=== PATIENT | female | born 1955 | race Caucasian/White ===

== ENCOUNTER 2021-04-25 18:58 | Inpatient (IN) | payer MEDICARE, MEDICAID ==
[~2021-04-25] VITALS: Ht 162.6 cm; Wt 61.2 kg
[2021-04-25 20:32] LABS: BASOPHILS % 0.6 % (0.0-2.0); EOSINOPHILS % 0.5 % (0.0-5.0); HEMATOCRIT. 39.8 % (36.0-48.0); HEMOGLOBIN. 12.9 g/dL (12.0-16.0); LYMPHOCYTES % 28.8 % (20.0-50.0); MEAN CORPUSCULAR HEMOGLOBIN 27.4 pg (28.0-32.0); MEAN CORPUSCULAR VOLUME 84.8 fL (81.0-99.0); MEAN PLATELET VOLUME 9.3 fl (7.4-10.4); MONOCYTES % 6.8 % (2.0-8.0); NEUTROPHILS % 63.3 % (40.0-76.0); PLATELET 205 x1000/uL (130-400); RED BLOOD CELL COUNT 4.69 mill/uL (4.2-5.4); RED CELL DISTRIBUTION WIDTH 14.6 % (11.6-14.6)
[2021-04-25 20:41] LABS: CHLORIDE 109 mEq/L (98-107)
[2021-04-25] MEDS ORDERED: CEFTRIAXONE 1 G PREMIX 50 ML IV NR (23:00)
[2021-04-25] MEDS ORDERED: AZITHROMYCIN 500MG/250ML 500 ML IV NR (23:00)
[2021-04-25] MEDS ORDERED: AZITHROMYCIN 500MG/250ML 250 ML IV NR (23:00)
[2021-04-25] MEDS ORDERED: IOHEXOL-300 100 ML BOTTLE ONE (23:15)
[2021-04-25] MEDS ORDERED: ONDANSETRON HCL 4MG/2ML INJ IV PRN (23:15)
[2021-04-26 01:05] LABS: CLARITY URINE CLEAR (CLEAR); COLOR URINE YELLOW (YELLOW); KETONES URINE NEGATIVE (NEGATIVE); LEUKOCYTE ESTERASE URINE 1+ (NEGATIVE); NITRITE URINE NEGATIVE (NEGATIVE); OCCULT BLOOD URINE NEGATIVE (NEGATIVE); PH URINE 5.5 (4.5-8.0); PROTEIN URINE 3+ (NEGATIVE); SPECIFIC GRAVITY URINE 1.035 (1.005-1.030)
[2021-04-26 05:25] LABS: BASOPHILS % 0.4 % (0.0-2.0); EOSINOPHILS % 0.3 % (0.0-5.0); HEMATOCRIT. 42.1 % (36.0-48.0); HEMOGLOBIN. 13.5 g/dL (12.0-16.0); LYMPHOCYTES % 19.1 % (20.0-50.0); MEAN CORPUSCULAR HEMOGLOBIN 27.2 pg (28.0-32.0); MEAN CORPUSCULAR VOLUME 85.3 fL (81.0-99.0); MEAN PLATELET VOLUME 9.2 fl (7.4-10.4); MONOCYTES % 5.4 % (2.0-8.0); NEUTROPHILS % 74.8 % (40.0-76.0); PLATELET 217 x1000/uL (130-400); RED BLOOD CELL COUNT 4.94 mill/uL (4.2-5.4); RED CELL DISTRIBUTION WIDTH 14.4 % (11.6-14.6)
[2021-04-26 05:26] LABS: CHLORIDE 110 mEq/L (98-107)
[2021-04-26 05:33] LABS: LDL CHOLESTEROL 62 mg/dL (5-100)
[2021-04-26 05:34] LABS: CREATINE KINASE 79 IU/L (26-192); HDL CHOLESTEROL 33 mg/dL (40-59)
[2021-04-26 05:37] LABS: CREATINE KINASE MB FRACTION 1.9 ng/mL (0.5-3.6)
[2021-04-26] MEDS ORDERED: FUROSEMIDE 20MG/2ML VIAL IVP SCH (09:00)
[2021-04-26 09:48] LABS: T4 FREE 1.2 ng/dL (0.76-1.46)
[2021-04-26 12:00] VITALS: BP 108/77
[2021-04-26] MEDS ORDERED: LACTULOSE 20G/30ML UDC PO NR (13:00)
[2021-04-26 13:28] LABS: BG BASE EXCESS -3.7 mmol/L (-2.0-2.0); BG CARBOXYHEMOGLOBIN 0.6 % (0.5-1.5); BG DEOXYHEMOGLOBIN 3.2 % (0.0-5.0); BG HCO3 ACT 19.9 mmol/L (22.0-26.0); BG METHEMOGLOBIN 0.3 % (0.0-1.5); BG OXYGEN SATURATION 96.8 % (92.0-98.5); BG OXYHEMOGLOBIN 95.9 % (94.0-97.0); BG PCO2 31.8 mmHg (35.0-45.0); BG PH 7.415 (7.350-7.450); BG PO2 90.2 mmHg (75.0-100.0); BG SAMPLE SITE LEFT RADIAL; BG TOTAL HEMOGLOBIN 12.9 g/dL (12.0-18.0); BG VENT MODE ROOM AIR
[2021-04-26 13:40] VITALS: BP 108/77
[2021-04-26 16:00] VITALS: BP 116/83
[2021-04-26 20:00] VITALS: BP 106/75
[2021-04-27] VITALS: BP 116/87
[2021-04-27 04:00] VITALS: BP 120/87
[2021-04-27 06:51] LABS: CREATINE KINASE MB FRACTION 1.4 ng/mL (0.5-3.6)
[2021-04-27 08:00] VITALS: BP 121/95
[2021-04-27] MEDS: ACETAMINOPHEN 650MG/20.3ML UDC PO PRN ×2 (11:50→20:02)
[2021-04-27 12:00] VITALS: BP 121/94
[2021-04-27 16:00] VITALS: BP 116/92
[2021-04-27 17:46] LABS: INR 1.2; PROTHROMBIN TIME 12.4 sec (9.6-11.0)
[2021-04-27 20:00] VITALS: BP 118/89
[2021-04-28] VITALS: BP 126/97
[2021-04-28 04:00] VITALS: BP 128/97
[2021-04-28 06:00] VITALS: BP 128/96
[2021-04-28 08:00] VITALS: BP 132/83
[2021-04-28] MEDS ORDERED: SODIUM BICARBONATE 4% (2.4MEQ) 5ML VIAL IV ONE (08:00)
[2021-04-28] MEDS ORDERED: LIDOCAINE HCL 1% 10 MG/ML 10ML VIAL ONE (08:52)
[2021-04-28] MEDS ORDERED: ACETAMINOPHEN 650MG/20.3ML UDC PO NR (09:30)
[2021-04-28] MEDS ORDERED: NALOXONE HCL 0.4MG/ML VIAL IV PRN (09:30)
[2021-04-28] MEDS ORDERED: HYDROCODONE/ACETAMINOPHEN 5/325MG TABLET PO PRN (09:30)
[2021-04-28 11:15] VITALS: BP 132/83
[2021-04-28 12:04] LABS: BASOPHILS % 0.9 % (0.0-2.0); EOSINOPHILS % 1.1 % (0.0-5.0); HEMATOCRIT. 40.5 % (36.0-48.0); HEMOGLOBIN. 13.1 g/dL (12.0-16.0); LYMPHOCYTES % 23.9 % (20.0-50.0); MEAN CORPUSCULAR HEMOGLOBIN 27.3 pg (28.0-32.0); MEAN CORPUSCULAR VOLUME 84.4 fL (81.0-99.0); MEAN PLATELET VOLUME 9.6 fl (7.4-10.4); MONOCYTES % 7.4 % (2.0-8.0); NEUTROPHILS % 66.7 % (40.0-76.0); PLATELET 226 x1000/uL (130-400); RED CELL DISTRIBUTION WIDTH 14.3 % (11.6-14.6)
[2021-04-28 12:36] LABS: CHLORIDE 109 mEq/L (98-107)
== END 2021-04-28 12:23 | disposition home or self-care (01) | DRG 186 ==
LOC: ER 18:58 → MICUSO 22:49 → 6WST 04-26 13:26
PROVIDERS: ADMIT Family Medicine; ATTEND Family Medicine
PROC: 0W993ZZ Drainage of Right Pleural Cavity, Percutaneous Approach (ICD-10-PCS; principal; 2021-04-28)
DX: J90 Pleural effusion, not elsewhere classified (principal); J96.00 Acute respiratory failure, unspecified whether with hypoxia or hypercapnia; I31.3 Pericardial effusion (noninflammatory); E44.1 Mild protein-calorie malnutrition; K59.00 Constipation, unspecified; R73.9 Hyperglycemia, unspecified; E87.5 Hyperkalemia; Z20.822 Contact with and (suspected) exposure to COVID-19; R74.01 Elevation of levels of liver transaminase levels; I11.0 Hypertensive heart disease with heart failure; I50.9 Heart failure, unspecified; Z68.23 Body mass index [BMI] 23.0-23.9, adult; Z90.5 Acquired absence of kidney; Z90.49 Acquired absence of other specified parts of digestive tract
CPT/HCPCS: 32555; 36415; 36600; 71045; 74177; 76604; 80048; 80053; 80061; 80076; 81003; 82040; 82375; 82550; 82553; 82805; 83036; 83615; 83880; 84439; 84443; 84484; 85025; 85379; 87426; 88108; 93306; 93970; 99285; J0456; J0696; J2405; J3490; Q9967